=== PATIENT | male | born 1960 | race Caucasian/White ===

== ENCOUNTER 2019-11-13 05:55 | Day surgery (SDC) | payer MEDICAID ==
[~2019-11-13] VITALS: Ht 162.6 cm; Wt 80.5 kg
[~2019-11-13 05:55] MED LIST: SODIUM CHLORIDE 0.9% 1,000 ML ONE
[2019-11-13] MEDS ORDERED: METF-960 PO (06:38)
[2019-11-13] MEDS ORDERED: ATOR40TA28 PO (06:38)
[2019-11-13] MEDS ORDERED: ASPI-1182 PO (06:38)
[2019-11-13] MEDS ORDERED: LOSA50TA64 PO (06:38)
[2019-11-13] MEDS ORDERED: SODIUM CHLORIDE 0.9% 1,000 ML IV ONE (06:45)
[2019-11-13 07:26] LABS: GLUCOMETER DEV NAME(LOC) SDS.; GLUCOSE,POINT OF CARE 115 MG/DL (70-110)
[2019-11-13] MEDS ORDERED: PROPOFOL 1% 20 ML VIAL IVP ONE (12:00)
[2019-11-13] MEDS ORDERED: LIDOCAINE/PF 2% 5 ML VIAL INJ ONE (12:00)
== END 2019-11-13 10:10 | disposition home or self-care (01) ==
LOC: SURGERY 05:55
PROVIDERS: ATTEND Internal Medicine Gastroenterology
DX: K61.0 Anal abscess (principal); I10 Essential (primary) hypertension; E78.5 Hyperlipidemia, unspecified; E11.9 Type 2 diabetes mellitus without complications; Z86.73 Personal history of transient ischemic attack (TIA), and cerebral infarction without residual deficits; Z79.899 Other long term (current) drug therapy; Z87.19 Personal history of other diseases of the digestive system
CPT/HCPCS: 45378; 82962; 93005; J2704; J3490; J7030